=== PATIENT | female | born 1985 | race Caucasian/White ===

== ENCOUNTER 2018-04-29 18:53 | Emergency (ER) | payer SELFPAY ==
--- NOTE | 2018-04-29 20:58 | EDPHYS ---
Physician Documentation [facility] Name: Adrienne Torres Age: 32 yrs Sex: Female : 1985 Arrival Date: 04/29/2018 Time: 18:56 Bed 17 Private MD: ED Physician Jordan Briggs HPI: 04/29 20:18 This 32 yrs old Female presents to ER via Ambulatory with complaints of Flu rn Symptoms. 20:18 The patient or guardian reports cough, flu symptoms. Onset: The symptoms/episode rn began/occurred 3 day(s) ago. Severity of symptoms: At their worst the symptoms were mild, in the emergency department the symptoms are unchanged. Modifying factors: The symptoms are alleviated by nothing, the symptoms are aggravated by nothing. The patient has not experienced similar symptoms in the past. The patient has not recently seen a physician. Reports right eye red and watery, + congestion/muscle aches/fatigue/sore throat/cough. Has been at [facility] for a week with family member. No sob. . 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 - Social history:: Smoking status: Patient/guardian denies using tobacco. - Ebola Screening: : Patient negative for fever greater than or equal to 101.5 degrees Fahrenheit, and additional compatible Ebola Virus Disease symptoms Patient denies exposure to infectious person Patient denies travel to an Ebola-affected area in the 21 days before illness onset No symptoms or risks identified at this time. - Family history:: not pertinent. - Hospitalizations: : No recent hospitalization is reported. ROS: 20:20 Constitutional: + fever and chills Eyes: + right eye with redness and watery ENT: + rn congestion and sore throat Neck: Negative for injury, pain, and swelling, Cardiovascular: Negative for chest pain, palpitations, and edema, Respiratory: + cough, negative for sob Abdomen/GI: Negative for abdominal pain, nausea, vomiting, diarrhea, and constipation, MS/Extremity: Negative for injury and deformity, Skin: Negative for injury, rash, and discoloration, Neuro: + generalized weakness Exam: 20:20 Constitutional: This is a well developed, well nourished patient who is awake, alert, rn and in no acute distress. Head/Face: Normocephalic, atraumatic. Eyes: + red and teary right eye with mild swelling, no evidence of facial or periorbital cellulitis 20:20 ENT: + tonsillar hypertrophy with exudate, no stridor Neck: + tender bilateral rn cervical LAD, no meningismus Skin: Warm, dry with normal turgor. Normal color with no rashes, no lesions, and no evidence of cellulitis. MS/ Extremity: Pulses equal, no cyanosis. Neurovascular intact. Full, normal range of motion. Equal circumference. Neuro: Awake and alert, GCS 15, oriented to person, place, time, and situation. Cranial nerves II-XII grossly intact. Motor strength 5/5 in all extremities. Sensory grossly intact. Cerebellar exam normal. Normal gait. Vital Signs: 19:04 BP 110 / 89; Pulse 98 MON; Resp 19 S; Temp 98.2; Pulse Ox 98% on R/A; Pain 10/10; sg 20:26 BP 129 / 91; Pulse 78; Resp 20 S; Temp 98.1(O); Pulse Ox 98% on R/A; cc3 MDM: 19:13 Patient medically screened. rn 20:57 Differential Diagnosis: Influenza Upper Respiratory Infection Pharyngitis Viral rn Syndrome. Data reviewed: vital signs, nurses notes, lab test result(s), and as a result, I will discharge patient. Counseling: I had a detailed discussion with the patient and/or guardian regarding: the historical points, exam findings, and any diagnostic results supporting the discharge/admit diagnosis, lab results, the need for outpatient follow up, to return to the emergency department if symptoms worsen or persist or if there are any questions or concerns that arise at home. Special discussion: I discussed with the patient/guardian in detail that at this point there is no indication for admission to the hospital. It is understood, however, that if the symptoms persist or worsen the patient needs to return immediately for re-evaluation. 04/29 19:07 Order name: Flu; Complete Time: 20:16 sg 04/29 19:39 Order name: Strep; Complete Time: 20:53 rn 04/29 20:51 Order name: Throat Culture EDMS Administered Medications: 21:10 Drug: Augmentin 875 mg Route: PO; cc3 21:15 Follow up: Response: No adverse reaction cc3 Disposition: 04/29/18 20:57 Discharged to Home. Impression: Conjunctivitis, Acute tonsillitis. - Condition is Stable. - Discharge Instructions: Bacterial Conjunctivitis, Tonsillitis, Viral Conjunctivitis. - Prescriptions for Augmentin 875- 125 mg Oral Tablet - take 1 tablet by ORAL route every 12 hours for 10 days; 20 tablet. Erythromycin 5 mg/gram (0.5 %) Ophthalmic Ointment - apply 1 centimeter by OPHTHALMIC route 2-3 times daily for 7 days; 1 tube. - Medication Reconciliation Form, Thank You Letter, Antibiotic Education, Prescription Opioid Use form. - Follow up: Private Physician; When: As needed; Reason: Recheck today's complaints, Re-evaluation by your physician. - Problem is new. - Symptoms have improved. 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 Impression: Conjunctivitis; Acute cc3 tonsillitis. Condition is Stable. Forms are Medication Reconciliation Form, Thank You Letter, Antibiotic Education, Prescription Opioid Use. Follow up: Private Physician; When: As needed; Reason: Recheck today's complaints, Re-evaluation by your physician. Problem is new. Symptoms have improved. rn
--- NOTE | 2018-04-29 20:58 | ER ---
Nurse's Notes [facility] Name: Adrienne Torres Age: 32 yrs Sex: Female : 1985 Arrival Date: 04/29/2018 Time: 18:56 Bed 17 Private MD: Diagnosis: Conjunctivitis;Acute tonsillitis Presentation: 04/29 19:08 Presenting complaint: Patient states: Has had body aches, chills, fever at home, sg reports this morning waking up with a red itchy draining R eye, denies N/V/D/Sore throat, reports having been in the hospital for several days with a family member and then started feeling ill. Transition of care: patient was not received from another setting of care. Onset of symptoms was April 29, 2018. Risk Assessment: Do you want to hurt yourself or someone else? Patient reports no desire to harm self or others. Initial Sepsis Screen: Does the patient meet any 2 criteria? No. Patient's initial sepsis screen is negative. Does the patient have a suspected source of infection? No. Patient's initial sepsis screen is negative. Care prior to arrival: None. 19:08 Method Of Arrival: Ambulatory 19:08 Acuity: KONRAD 4 sg Triage Assessment: 19:35 General: Appears in no apparent distress. comfortable, Behavior is calm, cooperative, cc3 appropriate for age. Pain: Denies pain. EENT: No signs and/or symptoms were reported regarding the EENT system. Neuro: Level of Consciousness is awake, alert, obeys commands, Oriented to person, place, time, situation, Appropriate for age. Cardiovascular: Denies chest pain, Patient's skin is warm and dry. Respiratory: Airway is patent Respiratory effort is even, unlabored, Respiratory pattern is regular, symmetrical. GI: Abdomen is flat, non-distended. : No signs and/or symptoms were reported regarding the genitourinary system. Derm: No signs and/or symptoms reported regarding the dermatologic system. Musculoskeletal: Circulation, motion, and sensation intact. Range of motion: intact in all extremities. 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 - Social history:: Smoking status: Patient/guardian denies using tobacco. - Ebola Screening: : Patient negative for fever greater than or equal to 101.5 degrees Fahrenheit, and additional compatible Ebola Virus Disease symptoms Patient denies exposure to infectious person Patient denies travel to an Ebola-affected area in the 21 days before illness onset No symptoms or risks identified at this time. - Family history:: not pertinent. - Hospitalizations: : No recent hospitalization is reported. Screenin:35 Abuse screen: Denies threats or abuse. Denies injuries from another. Nutritional cc3 screening: No deficits noted. Tuberculosis screening: No symptoms or risk factors identified. Fall Risk Ambulatory Aid- None/Bed Rest/Nurse Assist (0 pts). Gait- Normal/Bed Rest/Wheelchair (0 pts) Mental Status- Oriented to own ability (0 pts). Assessment: 19:35 GI: Bowel sounds present X 4 quads. Abd is soft and non tender X 4 quads. cc3 20:26 Reassessment: Patient appears in no apparent distress at this time. Patient and/or cc3 family updated on plan of care and expected duration. Pain level reassessed. Patient is alert, oriented x 3, equal unlabored respirations, skin warm/dry/pink. 21:15 Reassessment: Patient appears in no apparent distress at this time. Patient and/or cc3 family updated on plan of care and expected duration. Pain level reassessed. Patient is alert, oriented x 3, equal unlabored respirations, skin warm/dry/pink. Dr. Briggs discharged the patient home with prescription given. No IV cannula in situ. Patient left ER vitally stable and ambulatory with her family. Vital Signs: 19:04 BP 110 / 89; Pulse 98 MON; Resp 19 S; Temp 98.2; Pulse Ox 98% on R/A; Pain 10/10; sg 20:26 BP 129 / 91; Pulse 78; Resp 20 S; Temp 98.1(O); Pulse Ox 98% on R/A; cc3 ED Course: 18:56 Patient arrived in ED. as 19:00 Arm band placed on. sg 19:10 Triage completed. sg 19:13 Jordan Briggs MD is Attending Physician. rn 19:35 Hermelinda Brush is Primary Nurse. cc3 19:35 Patient has correct armband on for positive identification. Bed in low position. Call cc3 light in reach. Side rails up X 1. Pulse ox on. NIBP on. 21:15 No provider procedures requiring assistance completed. Patient did not have IV access cc3 during this emergency room visit. Administered Medications: 21:10 Drug: Augmentin 875 mg Route: PO; cc3 21:15 Follow up: Response: No adverse reaction cc3 Outcome: 20:57 Discharge ordered by . rn 21:00 Discharged to home ambulatory, with family. cc3 21:00 Condition: stable 21:00 Discharge instructions given to patient, family, Instructed on discharge instructions, follow up and referral plans. medication usage, Demonstrated understanding of instructions, follow-up care, medications, Prescriptions given X 2. 21:19 Patient left the ED. cc3 Signatures: Stew Flanagan, Gaye Vences RN, Roman, MD MD rn Cordel, Charlene cc3
[2018-04-29] MEDS ORDERED: AMOX/K CLAV 875 MG TAB ONE (21:24)
== END 2018-04-29 21:19 | disposition home or self-care (01) ==
LOC: ER 18:53
DX: H10.9 Unspecified conjunctivitis (principal); J03.90 Acute tonsillitis, unspecified
CPT/HCPCS: 87070; 87081; 87804; 99283